=== PATIENT | male | born 1995 | race Caucasian/White ===

== ENCOUNTER → 2019-01-17 | Outpatient (CLI) | payer OTHER ==
--- NOTE | 2019-01-17 17:26 | XR ---
EXAMINATION TYPE: XR knee complete LT DATE OF EXAM: 01/17/2019 COMPARISON: NONE HISTORY: Knee pain TECHNIQUE: 3 views FINDINGS: There is a mild knee joint effusion. I see no fracture nor dislocation. Joint spaces are fa irly normal. IMPRESSION: Mild knee joint effusion. No fracture seen.
== END | disposition home or self-care (01) ==
LOC: RADXRMAIN 16:43
PROVIDERS: ATTEND Emergency Medicine
DX: M25.462 Effusion, left knee (principal)

== ENCOUNTER → 2019-03-01 | Outpatient (CLI) | payer OTHER ==
[2019-03-01 13:58] LABS: Basophils # (A) 0.1 k/uL (0-0.2); Basophils % (A) 1 %; Eosinophils # (A) 0.1 k/uL (0-0.7); Eosinophils % (A) 1 %; HCT 48.1 % (39.0-53.0); HGB 15.7 gm/dL (13.0-17.5); Lymphocytes # (A) 2.1 k/uL (1.0-4.8); Lymphocytes % (A) 34 %; MCH 28.8 pg (25.0-35.0); MCHC 32.7 g/dL (31.0-37.0); MCV 88.2 fL (80.0-100.0); Mean Platelet Volume 6.8; Monocytes # (A) 0.4 k/uL (0-1.0); Monocytes % (A) 6 %; Neutrophils # (A) 3.3 k/uL (1.3-7.7); Neutrophils % (A) 54 %; Platelet Count 230 k/uL (150-450); RBC 5.46 m/uL (4.30-5.90); RDW 12.4 % (11.5-15.5)
[2019-03-01 14:11] LABS: Potassium 4.5 mmol/L (3.5-5.1)
== END | disposition home or self-care (01) ==
LOC: LABPAT 13:10
PROVIDERS: ATTEND Orthopaedic Surgery
DX: Z01.812 Encounter for preprocedural laboratory examination (principal); M23.92 Unspecified internal derangement of left knee
CPT/HCPCS: 36415; 80051; 85025

== ENCOUNTER 2019-03-22 06:55 | Day surgery (SDC) | payer OTHER ==
[2019-03-20 15:52] VITALS: BMI 23.6
--- NOTE | 2019-03-21 08:59 | HP ---
HISTORY AND PHYSICAL CHIEF COMPLAINT: Left knee pain. HISTORY OF PRESENT ILLNESS: The patient is a 23-year-old male who presents with left knee pain after an injury at work on 01/13/2019. He was playing basketball while working at the [employer] and after jumping, came down and twisted his knee. He has had lateral pain since. He notes intermittent swelling. He notes occasional giving way. He denies previous injury. He notes daily symptoms that limit him. PAST MEDICAL HISTORY: Negative. PAST SURGICAL HISTORY: Negative. . CURRENT MEDICATIONS: None. He denies drug allergies. FAMILY HISTORY: Noncontributory. SOCIAL HISTORY: Negative for current tobacco or alcohol use. 16 POINT REVIEW OF SYSTEMS: Otherwise reviewed and is noncontributory. PHYSICAL EXAMINATION: The patient is approximately 5 foot 10, 165 pounds of mesomorphic habitus. He has painless passive motion of left hip. Straight leg raise is negative. Active motion left knee -4 to 145 degrees of flexion. He has a trace effusion. He is tender about the lateral joint line. Collaterals are stable, Olimpia is negative, Ariana's elicits lateral pain. His distal neurovascular exam appears intact in the left lower extremity. Previous MRI of the left knee from 02/12/2019 shows an anterior lateral and mid lateral meniscal tear along with edema of the lateral tibial plateau. IMPRESSION: Internal derangement left knee with symptomatic lateral meniscal tear. RECOMMENDATIONS: I talked to the patient at length regarding his condition along with treatment options. At this point, he is having pain and mechanical symptoms after this acute injury that limit him. After thorough discussion, he opts to proceed with surgery. We will plan to proceed with arthroscopic evaluation with probable partial lateral meniscectomy. Risks and benefits were discussed at length in layman's terms. We will likely perform that as an outpatient procedure. MMODL / IJN: [id number] /
[~2019-03-22 06:55] MED LIST: DEXAMETHASONE SOD PHOSPHATE 10 MG/ML 1 ML VIAL IV ONE; HYDROmorphone 0.5 MG/0.5 ML SYRINGE IVP PRN; LACTATED RINGERS 1,000 ML IV SCH; MIDAZOLAM 2 MG/2 ML VIAL IV PRN; ONDANSETRON 4 MG/2 ML VIAL IVP ONE; SCOPOLAMINE 1.5MG/72HR PATCH TRANSDERM ONE
[2019-03-22] MEDS ORDERED: LIDOCAINE 1% 20 ML VIAL (10MG/ML) FOR IV START INTRADERMA ONE (07:22)
[2019-03-22] MEDS ORDERED: LIDOCAINE 1% INJ 10MG/ML (20 ML MDV) ONE (08:05)
[2019-03-22] MEDS ORDERED: fentaNYL (PF) 50 MCG/ML 2 ML AMP ONE (08:05)
[2019-03-22] MEDS ORDERED: MIDAZOLAM 2 MG/2 ML VIAL ONE (08:05)
[2019-03-22] MEDS ORDERED: PROPOFOL 10 MG/ML 20 ML VIAL IV ONE (08:05)
[2019-03-22] MEDS ORDERED: KETOROLAC 30 MG/ML 1 ML VIAL ONE (08:05)
--- NOTE | 2019-03-22 09:15 | P.OP ---
Date of Procedure: 03/22/19 Preoperative Diagnosis: Left knee internal derangement Postoperative Diagnosis: Left knee middle one third lateral meniscal tear/reactive synovitis Procedure(s) Performed: Left knee arthroscopic partial lateral meniscectomy/partial synovectomy of the medial, lateral, and patellofemoral compartments. Anesthesia: GETA Surgeon: Arcenio Hwang Estimated Blood Loss (ml): 10 Pathology: none sent Condition: stable Disposition: PACU Indications for Procedure: The patient's a 23-year-old male who presents with persistent left knee pain and mechanical symptoms after an acute injury despite conservative measures. A discussion of the risks and benefits of operative intervention was made with patient. He opted to proceed with surgery. Operative risks to include infection, neurovascular injury, development of blood clots, possible incomplete resolution of symptoms, possible worsening symptoms and need for subsequent procedures was discussed. Informed consent was obtained. Operative Findings: As below Description of Procedure: The patient was brought to the operating room, and after induction of general anesthesia examined the left knee. Collaterals were stable, Olimpia was negative, and posterior drawer was negative. The left lower extremity was prepped and draped in a normal fashion. A superior lateral portal was made through a 3 mm skin incision superior and lateral to the patella. This was used for outflow. A lateral portal was made through a 5 mm vertical skin incision lateral to the patella tendon above the joint line. Diagnostic arthroscopy was performed. On inspection of the medial compartment, no significant meniscal or cartilage pathology was noted. Reactive synovitis involving the anterior medial compartment was debrided with a motorized shaver. On inspection of the notch, the anterior cruciate ligament appeared to be intact. On inspection of the lateral compartment, a complex tear involving the middle one third of the lateral meniscus was noted in the white-red junction. This was debrided back to stable base with straight baskets and a motorized shaver. The remaining lateral meniscus was stable and intact. Reactive synovitis involving the anterolateral compartment was debrided with motorized shaver. On inspection of the patellofemoral articulation, reactive synovitis was debrided with motorized shaver. No significant chondral injury was noted.. The gutters were clear debris. The knee was then thoroughly irrigated. The portals were closed with Steri-Strips. A sterile dressing was applied in addition to a compression stocking. The patient was awoken from general anesthesia and transferred to recovery room in good condition. Blood loss was estimated at 10 mL. No complications were incurred.
[2019-03-22 09:19] VITALS: TEMP 96.9
[2019-03-22 09:57] VITALS: RESP 18
[2019-03-22 10:16] VITALS: BP 119/82; PULSE 73
== END 2019-03-22 10:39 | disposition home or self-care (01) ==
LOC: OR 06:55
PROVIDERS: ATTEND Orthopaedic Surgery
DX: S83.272A Complex tear of lateral meniscus, current injury, left knee, initial encounter (principal); M65.862 Other synovitis and tenosynovitis, left lower leg; Z98.818 Other dental procedure status; X50.1XXA Overexertion from prolonged static or awkward postures, initial encounter; Y93.67 Activity, basketball
CPT/HCPCS: 29881; 29876; J2250; J1100; J0690; J2405; J2001; J3010; J1885; J2704; J1170

== ENCOUNTER 2022-03-28 21:30 | Emergency (ER) | payer OTHER ==
[2022-03-28 21:35] VITALS: BP 164/99; PULSE 65; RESP 18; TEMP 98.1
[2022-03-28] MEDS ORDERED: IBUPROFEN 800 MG TAB PO STA (21:52)
[2022-03-28] MEDS ORDERED: ACETAMINOPHEN TAB 500 MG TAB PO STA (21:52)
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
== END 2022-03-28 23:00 | disposition home or self-care (01) ==
LOC: EC 21:30
DX: Z04.3 Encounter for examination and observation following other accident (principal); V89.2XXA Person injured in unspecified motor-vehicle accident, traffic, initial encounter
CPT/HCPCS: 99283